=== PATIENT | female | born 1955 | race Caucasian/White ===

== ENCOUNTER 2023-09-06 10:50 | Observation (INO) ==
--- NOTE | 2023-09-06 11:08 | Emergency Department Note ---
Impression & Plan Cellulitis of both lower extremities ED Provider Note NAME: ROB RODRIGUEZ AGE: 68 SEX: F : 1955 ARRIVES VIA: Walk-In INFORMANT: [Patient][, ] ED PROVIDER(S): [Jack Bullock MD] CHIEF COMPLAINT: Leg infection MEDICAL DECISION MAKING: Patient presents due to concern for bilateral leg infection. The patient was noted to have fever. Blood cultures were obtained. IV fluids ordered. Patient did have a wound swab obtained from the left lower extremity open wound The patient's blood work shows a normal white count H&H and platelet count. The patient's kidney function is unremarkable. BUN to creatinine ratio is elevated. The patient did receive IV fluids. Urinalysis without obvious evidence of blood or infection. Pro-Rosalio negative lactate not elevated. Given the patient's fever and associated cellulitic changes do believe the patient would benefit from admission. I did speak the on-call hospitalist MAIRA figueroa and the patient was admitted by Dr. Guzmán. Patient was ordered IV vancomycin. Discussion w/ other healthcare providers: MAIRA Abraham and Dr. Gumzán Prior /Outside records reviewed: [none] Differential diagnosis: Cellulitis, abscess, MRSA infection, DVT, necrotizing fasciitis, dermatitis, drug eruption, allergic reaction, as well as other pathologies were considered. Diagnostics, as interpreted by me: ECG: Sinus with PACs, rate of 65, normal intervals, normal axis. No ST elevations Cardiac monitoring: An order was placed for continuous cardiac monitoring. The monitor shows a rate of 65 with sinus rhythm. [Patient was placed on pulse oximetry] Medical decision rules: [none] Imaging studies: [I informally interpreted the patient's [] with formal report to follow.] [] HPI: Patient presents due to concern for bilateral lower extremity redness and possible infection. The patient states that she initially developed which she describes some bubbling over the skin noted after a cardiac catheterization completed at [facility] in July. The patient subsequently developed some worsening redness just in the last week. The patient has been using a new body wash and does state it is occasionally itchy but primarily complains of it being fiery and warm. Patient denies any chest pains or shortness of breath. The patient states that her cardiac catheterization was "clean." She states that she did not have any dysfunction noted on her echocardiogram. Patient reportedly had some leftover ciprofloxacin which she took throughout the week and spoken to her nephew who is a physician who told her to get it checked out as she was having some open areas that were weeping. The patient did take 1 or 2 doses of amoxicillin just in the last 24 hours. Patient denies any fevers or chills. Patient was noted to be febrile here in the department. Patient denies any recent prolonged car or plane travel no history of DVT or PE. Patient does not take any diuretics and has no history of heart failure PAST MEDICAL HISTORY: [See Below] PAST SURGICAL HISTORY: [See Below] SOCIAL HISTORY: [See Below] HOME MEDICATIONS: [See Below] ALLERGIES: [See Below] VITALS: [See Below] PHYSICAL EXAMINATION: GENERAL: NAD, non-toxic. EYE EXAM: Normal conjunctiva. PERRL, no anisocoria and EOM's grossly intact w/o pain. OROPHARYNX: Moist mucus membranes, grossly normal dentition. NECK: Trachea midline, no stridor. [Supple, no nuchal rigidity, no adenopathy, non-tender. No signs of meningismus. FROM of the neck with good chin to chest and neck extension.] LUNGS: Clear to auscultation. Normal chest wall mechanics. HEART: NSR, no MRG. ABDOMEN: Abdomen soft, non-tender, no masses, no rebound or guarding. BACK: No CVA TTP. SKIN: No rashes and no bruising. UPPER EXTREMITIES: Upper extremities are grossly normal. LOWER EXTREMITIES: Bilateral lower extremity edema with bilateral lower extremity redness and calor, open wounds noted to the left lower extremity, no crepitus. Some clear drainage noted. NEURO EXAM: A&O x3, cranial nerves II-XII grossly intact, normal speech, moves all 4 extremities. Past Med/Surg History Medical History History of endometrial cancer HLD (hyperlipidemia) ROBI on CPAP DM type 2 (diabetes mellitus, type 2) HTN (hypertension) Surgical History History of hernia repair History of hysterectomy Social History Smoking Status: Never smoker Preferred Language: Macanese Feels Safe at Home: Yes Home Meds Home Medications Medication Instructions Recorded Confirmed aspirin 81 mg capsule 81 mg PO DAILY 09/06/23 09/06/23 atorvastatin 40 mg tablet 40 mg PO HS 09/06/23 09/06/23 glipizide 2.5 mg tablet, extended 2.5 mg PO DAILY 09/06/23 09/06/23 release 24 hr valsartan 80 mg tablet 80 mg PO DAILY 09/06/23 09/06/23 Results & Data (ED) Vital Signs Vital Signs - 24 hr 09/06/23 10:59 09/06/23 11:29 09/06/23 13:30 Temperature 38.6 C H Temperature Source Temporal Artery Scan Pulse Rate 76 60 62 Pulse Rate from SpO2 Sensor 60 Pulse Rhythm Regular Respiratory Rate 18 24 Blood Pressure 170/76 H Blood Pressure Mean 107 Pulse Oximetry 98 98 98 Oxygen Delivery Method Room Air Room Air Sepsis Recent Fever Within 48 Hours Yes Sepsis New/Unexplained Change in Mental Status No Sepsis Action Taken by Nursing No Action Required 09/06/23 14:00 09/06/23 14:30 Temperature Temperature Source Pulse Rate 60 57 L Pulse Rate from SpO2 Sensor 67 54 L Pulse Rhythm Respiratory Rate 24 20 Blood Pressure 162/80 H 164/77 H Blood Pressure Mean 107 106 Pulse Oximetry 98 98 Oxygen Delivery Method Sepsis Recent Fever Within 48 Hours Sepsis New/Unexplained Change in Mental Status Sepsis Action Taken by Long-Term Medications Current Medication List: was personally reviewed by me Laboratory Data Attestation: I reviewed the patient's lab results. 09/06/23 11:27 09/06/23 11:27 Lab Results 09/06/23 09/06/23 09/06/23 Range/Units 11:27 12:07 13:40 WBC 7.76 (4.8-10.8) K/ul RBC 4.36 (4.20-5.40) M/uL Hgb 12.9 (12.0-16.0) g/dl Hct 39.3 (37.0-47.0) % MCV 90.1 (80.0-100.0) fL MCH 29.6 (25.0-34.0) pg MCHC 32.8 (32.0-36.0) g/dL RDW Std Deviation 46.7 H (36.4-46.3) fL RDW Coeff of Margaux 14.1 (11.5-14.5) % Plt Count 203 (130-400) K/uL MPV 10.7 (9.4-12.4) fL Immature Gran % (Auto) 0.3 % Neut % (Auto) 68.2 % Lymph % (Auto) 22.4 % Clay % (Auto) 7.3 % Eos % (Auto) 1.3 % Baso % (Auto) 0.5 % Neut # (Auto) 5.29 (1.40-6.50) K/uL Lymph # (Auto) 1.74 (1.20-3.40) K/uL Clay # (Auto) 0.57 (0.11-0.59) K/uL Eos # (Auto) 0.10 (0.00-0.50) K/uL Baso # (Auto) 0.04 (0.00-0.20) K/uL Immature Gran # (Auto) 0.02 (0.01-0.20) K/uL PT 10.7 (9.0-12.0) Seconds INR 1.0 (0.9-1.1) APTT 29 (21-31) Seconds PTT Ratio 1.0 Sodium 139 (136-145) mmol/L Potassium 4.1 (3.5-5.1) mmol/L Chloride 107 (98-107) mmol/L Carbon Dioxide 27 (21-32) mmol/L Anion Gap 5 (3-11) BUN 19 (6-23) mg/dl Creatinine 0.70 (0.6-1.2) mg/dl Est Cr Clr Drug Dosing Not Reportable Est GFR ( Amer) 101.7 ml/min Est GFR (Non-Af Amer) 87.8 ml/min BUN/Creatinine Ratio 27.1 H (10-20) Glucose 127 H (70-99(Fasting)) mg/dl Lactate 1.0 (0.4-2.0) mmol/L Calcium 9.4 (8.6-10.3) mg/dl Magnesium 2.0 (1.7-2.4) mg/dl Total Bilirubin 0.8 (0.2-1.0) mg/dl Direct Bilirubin TNP AST 24 (13-39) U/L ALT 19 (7-52) U/L Alkaline Phosphatase 105 H (34-104) U/L Troponin I High Sens 4.6 (0-14) pg/ml Total Protein 7.5 (6.0-8.3) gm/dl Albumin 4.6 (3.4-5.0) gm/dl Procalcitonin 0.02 (0-0.5) ng/ml Urine Color Yellow Urine Appearance Clear (Clear) Urine pH 5.5 (4.5-7.5) Ur Specific [place] 1.009 (1.000-1.030) Urine Protein Negative (Negative) Urine Glucose (UA) Negative (Negative) Urine Ketones Negative (Negative) Urine Blood Negative (Negative) Urine Nitrite Negative (Negative) Urine Bilirubin Negative (Negative) Urine Urobilinogen Negative (Negative) Ur Leukocyte Esterase Negative (Negative) Administered Medications Discontinued Medications Acetaminophen (Ofirmev) 1,000 mg in 100 mls @ 400 mls/hr IV NOW STA Stop: 09/06/23 11:43 Last Infusion: 09/06/23 11:54 Dose: Infused Documented By: Admin: 09/06/23 11:39 Dose: 400 mls/hr Documented By: KEVAN Sodium Chloride (Nss) 500 mls @ 999 mls/hr IV .Q31M ONE Stop: 09/06/23 12:50 Last Infusion: 09/06/23 13:38 Dose: Infused Documented By: Admin: 09/06/23 13:07 Dose: 999 mls/hr Documented By: LYUBOV Piperacillin Sod/Tazobactam (Sod 4.5 gm/ Dextrose) 100 mls @ 25 mls/hr IV Q8H [facility]; Protocol Stop: 09/13/23 14:14 Last Admin: 09/06/23 14:27 Dose: Not Given Documented By: RADHA Imaging Data Radiologist's Impression: Chest X-Ray 09/06/23 11:29 XR chest 1V portable CLINICAL HISTORY: Sepsis TECHNIQUE: Single frontal radiograph of the chest was obtained. Comparison: None available at the time of this dictation. FINDINGS: No lines and tubes are seen. The cardiomediastinal silhouette is normal. The lungs are clear. No evidence of pleural effusion or pneumothorax. IMPRESSION: No acute abnormalities and in particular no radiographic evidence of pneumonia. ACT 112: Negative or not required by law. Electronically signed by: Ceasar Nair M.D. 09/06/2023 11:48 AM Discharge Plan Visit Data Chief Complaint: Infection, Wound Stated Complaint: INFECTION IN LEFT LEG ED Provider: Jakc Bullock Discharge Problem: Cellulitis of both lower extremities Forms Stand Alone Forms: My [facility] Prescriptions Prescriptions: No Action atorvastatin 40 mg tablet 40 mg PO HS valsartan 80 mg tablet 80 mg PO DAILY glipizide 2.5 mg tablet extended release 24hr 2.5 mg PO DAILY aspirin 81 mg Capsule 81 mg PO DAILY Referrals Referrals: PCP,NO [Physician] -
[2023-09-06] MEDS: ACETAMINOPHEN 1,000 MG/100 ML VIAL IV STA (11:39)
[2023-09-06 11:47] LABS: Basophils # (auto) 0.04 K/uL (0.00-0.20); Basophils % (auto) 0.5 %; Eosinophils % (auto) 1.3 %; Hematocrit (blood only) 39.3 % (37.0-47.0); Hemoglobin 12.9 g/dl (12.0-16.0); Immature Granulocytes # (auto) 0.02 K/uL (0.01-0.20); Immature Granulocytes % (auto) 0.3 %; Lymphocytes # (auto) 1.74 K/uL (1.20-3.40); Lymphocytes % (auto) 22.4 %; Mean Corpuscular Hemoglobin 29.6 pg (25.0-34.0); Mean Corpuscular Hgb Conc 32.8 g/dL (32.0-36.0); Mean Corpuscular Volume 90.1 fL (80.0-100.0); Mean Platelet Volume 10.7 fL (9.4-12.4); Monocytes # (auto) 0.57 K/uL (0.11-0.59); Monocytes % (auto) 7.3 %; Neutrophils # (auto) 5.29 K/uL (1.40-6.50); Neutrophils % (auto) 68.2 %; Platelet Count 203 K/uL (130-400); RDW Coefficient of Variation 14.1 % (11.5-14.5); RDW Standard Deviation 46.7 fL (36.4-46.3); Red Blood Count 4.36 M/uL (4.20-5.40); White Blood Count 7.76 K/ul (4.8-10.8)
--- NOTE | 2023-09-06 11:50 | XRay Report ---
XR chest 1V portable CLINICAL HISTORY: Sepsis TECHNIQUE: Single frontal radiograph of the chest was obtained. Comparison: None available at the time of this dictation. FINDINGS: No lines and tubes are seen. The cardiomediastinal silhouette is normal. The lungs are clear. No evid ence of pleural effusion or pneumothorax. IMPRESSION: No acute abnormalities and in particular no radiographic evidence of pneumonia. ACT 112: Negative or not required by law. Electronically signed by: Ceasar Nair M.D. 09/06/2023 11:48 AM
[2023-09-06 12:09] LABS: Alanine Aminotransferase 19 U/L (7-52); Albumin Level 4.6 gm/dl (3.4-5.0); Alkaline Phosphatase 105 U/L (34-104); Anion Gap 5 (3-11); Aspartate Aminotransferase 24 U/L (13-39); BUN Creatinine Ratio 27.1 (10-20); Bilirubin,Total 0.8 mg/dl (0.2-1.0); Blood Urea Nitrogen 19 mg/dl (6-23); Calcium 9.4 mg/dl (8.6-10.3); Carbon Dioxide 27 mmol/L (21-32); Chloride 107 mmol/L (98-107); Est GFR (African American) 101.7 ml/min; Est GFR (Non-African American) 87.8 ml/min; Glucose 127 mg/dl (70-99(Fasting)); Potassium 4.1 mmol/L (3.5-5.1); Sodium 139 mmol/L (136-145); Total Protein 7.5 gm/dl (6.0-8.3)
[2023-09-06 12:17] LABS: Troponin I High Sensitivity 4.6 pg/ml (0-14)
[2023-09-06 12:18] LABS: Partial Thromboplastin Time 29 Seconds (21-31); Prothrombin Time 10.7 Seconds (9.0-12.0)
[2023-09-06] MEDS: SODIUM CHLORIDE 0.9% 500 ML IV ONE (13:07)
[2023-09-06] MEDS ORDERED: VANCOMYCIN CONSULT ACTIVE PRN ×2 (14:14→14:19)
[2023-09-06 14:16] LABS: Appearance Urine Clear (Clear); Bilirubin Urine Negative (Negative); Blood Urine Negative (Negative); Color Urine Yellow; Glucose Urine UA Negative (Negative); Ketones Urine Negative (Negative); Leukocyte Esterase Urine Negative (Negative); Nitrite Urine Negative (Negative); Protein Urine Negative (Negative); Specific Gravity Urine 1.009 (1.000-1.030); Urobilinogen Urine Negative (Negative); pH Urine 5.5 (4.5-7.5)
[2023-09-06] MEDS: PIPERACILLIN/TAZOBACTAM 4.5 GM in DEXTROSE 5% MINI-B 100 ML IV SCH (14:27)
[2023-09-06] MEDS ORDERED: Patient's ALLERGY Info needs ENTERED SCH (15:00)
[2023-09-06] MEDS: VANCOMYCIN HCL 2,750 MG in SODIUM CHLORIDE 0.9% 500 ML IV ONE (15:26)
--- NOTE | 2023-09-06 16:17 | Pharmacy Report ---
Pharmacy PK ABX Note - Date of Service September 06, 2023 - Assessment and Plan Assessment 68 year old F receiving vancomycin for bilateral lower extremity cellulitis. Hx of recent cardiac catheterization in July and some "bubbling" over the skin noted after procedure. Worsening redness just in the last week, but also with some weeping so came to ER. Per notes, patient took 1-2 doses of amoxicillin in last 24 hours and a couple doses of ciprofloxacin. Plan Vancomycin * Loading dose: 2750 mg iv x 1 (ED ~22 mg/kg/dose) * Maintenance dose: 1250 mg IV every 12 hours * Regimen is predicted to achieve target AUC/MAYUR of 400-600 mg/L.hr * Plan to order level if plan is to continue >48 hours Pharmacy will continue to follow and will adjust dose/frequency as necessary. Thank you. Pharmacy has transitioned to AUC monitoring for vancomycin. AUC/MAYUR is the preferred PK/PD target and is associated with decreased risk of nephrotoxicity compared to traditional trough targets.
[2023-09-06] MEDS ORDERED: GLUCAGON FOR INJ 1 MG VIAL SQ PRN (16:48)
[2023-09-06] MEDS ORDERED: ACETAMINOPHEN 325 MG TAB PO PRN (16:48)
[2023-09-06] MEDS ORDERED: GLUCOSE 40% GEL 15 GM TUBE PO PRN (16:48)
[2023-09-06] MEDS ORDERED: CARBOHYDRATES FOR HYPOGLYCEMIA PO PRN (16:48)
[2023-09-06] MEDS ORDERED: GLUCOSE 10 TAB/TUBE PO PRN (16:48)
[2023-09-06] MEDS ORDERED: DEXTROSE 50% 50 ML SYRINGE IV PRN (16:48)
--- NOTE | 2023-09-06 16:53 | History & Physical Report ---
Date of Service September 06, 2023 Assessment & Plan (1) Cellulitis of both lower extremities: Plan: Admit to [facility] Patient presenting from home with reports of worsening bilateral lower extremity redness and blistering. Was taking Cipro and amoxicillin at home self-directed without improvement. In the ED, patient is febrile 38.6, otherwise is stable and does not appear septic. WBC 7.7 Started on vancomycin, Gram stain shows many gram-positive cocci, will continue with vancomycin only for now BLLE dopplers pending Follow blood and wound cultures (2) HTN (hypertension): Plan: Chronic, stable Continue valsartan (3) DM type 2 (diabetes mellitus, type 2): Plan: Unknown Hgb A1c, will check with a.m. labs Hold glipizide and utilize NovoLog per protocol while hospitalized (4) ROBI on CPAP: Plan: CPAP as per home settings (5) HLD (hyperlipidemia): Plan: Chronic, stable Continue statin DVT PROPHYLAXIS SQ Lovenox Patient seen in collaboration with Dr. Guzmán. I spent a total of 75 minutes coordinating, documenting, and providing care for this patient excluding time spent in the performance of separately billed services. This included personally reviewing all current laboratories and imaging studies, medication reconciliation, outpatient chart review, and discussion with specialists. History of Present Illness Chief Complaint: Leg infection Primary Care Provider: RINA BUSTAMANTE 68-year-old female with PMH HTN, DM type II, ROBI on CPAP, HLD, history of endometrial cancer s/p hysterectomy, and other problems listed below who presents to the ED for evaluation of bilateral lower extremity redness. History is obtained from the patient. No prior records available for review. Patient reports she noted worsening redness of her lower extremities about 10 days ago. 1 week ago, she reports she started taking leftover ciprofloxacin. Legs have been weeping and developing blisters. She developed a larger blister on her left anaya that subsequently opened. It has been draining purulent drainage. Yesterday, she started taking amoxicillin that she had at home as well. Patient was seen at an outpatient [facility] and was referred to the ED for further evaluation. Patient denies any injury to her legs. She reports that she does not have pets in the home. Denies fevers and chills. No chest pain or shortness of breath. Denies lightheadedness, dizziness, diaphoresis, syncopal events. No abdominal pain, nausea, vomiting, diarrhea. Denies urinary symptoms. In the ED, patient was febrile at 38.6. Labs are unremarkable. Patient received Tylenol and IVF. Allergies Allergy/AdvReac Type Severity Reaction Status Date / Time hydrochlorothiazide Allergy Weakness Verified 09/06/23 15:26 Home Medications Medication Instructions Recorded Confirmed Type aspirin 81 mg capsule 81 mg PO DAILY 09/06/23 09/06/23 History atorvastatin 40 mg tablet 40 mg PO HS 09/06/23 09/06/23 History glipizide 2.5 mg tablet, extended 2.5 mg PO DAILY 09/06/23 09/06/23 History release 24 hr valsartan 80 mg tablet 80 mg PO DAILY 09/06/23 09/06/23 History Past Med/Surg History Medical History History of endometrial cancer HLD (hyperlipidemia) ROBI on CPAP DM type 2 (diabetes mellitus, type 2) HTN (hypertension) Surgical History History of hernia repair History of hysterectomy Social History Smoking Status: Never smoker Second Hand Exposure: No; Do You Dip or Chew Tobacco: No; Tobacco Cessation Education Requested by Patient: No Hx Alcohol Use: No Hx Substance Use: No Preferred Language: Frisian Communication Ability: Effective Nail Tech Required: No Beliefs That Will Affect Care: None Current Living Situation: Spouse Feels Safe at Home: Yes Assistive Devices: Glasses Physical Exam Constitutional: WD/WN, vitals as above + obese; no acute distress Eyes: PERRL, conjunctivae normal, anicteric sclerae ENMT: external ear and nose normal, oropharynx normal Respiratory: normal respiratory effort, lungs clear to auscultation Cardiovascular: Rate/Rhythm: regular rate and regular rhythm Vessels: n ormal peripheral pulses Extremities: + edema (+2 edema BLE) Gastrointestinal (Abdomen): normal bowel sounds, soft, nontender, no hepatosplenomegaly Musculoskeletal: no cyanosis or clubbing, extremities motor strength 5/5 Skin: BLLE erythematous with scattered blisters, open blister noted to left anaya with dried purulent drainage Neurologic: PERRL, EOMI, accommodation nl, no face palsy, no dysarthria Psychiatric: A+Ox3, euthymic affect Results & Data Results & Data Vital Signs (Past 12 Hours) Vital Signs Temp Pulse Pulse Resp BP BP Pulse Ox 09/06/23 15:29 37.0 C 56 L 20 144/70 H 98 09/06/23 14:30 57 L 20 164/77 H 98 09/06/23 14:00 60 24 162/80 H 98 09/06/23 13:30 62 24 98 09/06/23 11:29 60 98 09/06/23 10:59 38.6 C H 76 18 170/76 H 98 O2 Del Method 09/06/23 15:29 09/06/23 14:30 09/06/23 14:00 09/06/23 13:30 09/06/23 11:29 Room Air 09/06/23 10:59 Room Air Laboratory Results Short CBC 09/06/23 Range/Units 11:27 WBC 7.76 (4.8-10.8) K/ul Hgb 12.9 (12.0-16.0) g/dl Hct 39.3 (37.0-47.0) % Plt Count 203 (130-400) K/uL BMP 09/06/23 11:27 Sodium 139 Potassium 4.1 Chloride 107 Carbon Dioxide 27 BUN 19 Creatinine 0.70 Glucose 127 H Calcium 9.4 Liver Function 09/06/23 Range/Units 11:27 Total Bilirubin 0.8 (0.2-1.0) mg/dl Direct Bilirubin TNP AST 24 (13-39) U/L ALT 19 (7-52) U/L Alkaline Phosphatase 105 H (34-104) U/L Albumin 4.6 (3.4-5.0) gm/dl Urine 09/06/23 Range/Units 13:40 Urine Color Yellow Urine Appearance Clear (Clear) Urine pH 5.5 (4.5-7.5) Ur Specific [place] 1.009 (1.000-1.030) Urine Protein Negative (Negative) Urine Glucose (UA) Negative (Negative) Diagnostic Findings Chest X-Ray 09/06/23 11:29 XR chest 1V portable CLINICAL HISTORY: Sepsis TECHNIQUE: Single frontal radiograph of the chest was obtained. Comparison: None available at the time of this dictation. FINDINGS: No lines and tubes are seen. The cardiomediastinal silhouette is normal. The lungs are clear. No evidence of pleural effusion or pneumothorax. IMPRESSION: No acute abnormalities and in particular no radiographic evidence of pneumonia. ACT 112: Negative or not required by law. Electronically signed by: Ceasar Nair M.D. 09/06/2023 11:48 AM Supervising Physician Co-Signing Physician Notes I have seen and examined the patient and have discussed the case with the provider above. I have reviewed the advanced practitioner's documentation, and I agree with, and take responsibility for that plan of care. 68-year-old female who receives care out of network presented with concerns of bilateral leg infection. She reported having a fever and states that her legs became red and concerning approximately 1 week ago. At that time she started ciprofloxacin 500 mg twice daily for 7 days but with no improvement. She does have a open wound on the lower left leg with yellow dried drainage and reports of purulent drainage in the past week. 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 She does not appear to be septic today. On exam vitals are stable including a blood pressure 144/70 pulse 56. She has normal respirations and initial temp of 38.6 improved to 37.0. She is oxygenating well on room air. She is generally obese. She has a normal heart and lung exam. Abdomen soft nontender nondistended. Lower extremities are affected with erythema bilaterally and open wound as described above on the left lower leg. Feet are noninvolved bilaterally. There is a slight swelling with no pitting edema present there is a vesicular appearing irritation and warmth to the skin but no elham blistering. Patient states that her left lower extremity wound was initially a blister that broke open. No wounds on feet. Workup as noted above including no evidence of leukocytosis chemistry panel within normal limit. Venous Doppler study is negative for DVT. Blood cultures are pending. A wound culture initial Gram stain did reveal many gram-positive cocci. Agree with plan for empiric vancomycin monotherapy for bilateral lower extremity cellulitis pending culture and results and clinical improvement. DO Ramirez
[2023-09-06] MEDS: INSULIN ASPART PER UNIT CHARGE SC SCH (17:46)
[2023-09-06] MEDS: ENOXAPARIN INJ 40 MG/0.4 ML SYR SQ SCH (18:09)
--- NOTE | 2023-09-06 19:26 | Ultrasound Report ---
US venous doppler LE BI CLINICAL HISTORY: edema TECHNIQUE: Bilateral lower extremity real-time compression venous ultrasound with Color Doppler imagi ng. Utilizing real-time ultrasonic imaging multiple real time high-resolution ultrasonic images with compression and noncompression maneuvers of the deep venous system in addition to color doppler imagi ng were performed from the common femoral vein through the proximal calf veins. COMPARISON: None available at the time of this dictation. FINDINGS/IMPRESSION: Currently there is normal compressibility of the deep venous system from the common femoral vein thro ugh the proximal calf veins. No superficial venous thrombosis is identified. ACT 112: Negative or not required by law. Electronically signed by: Ceasar Nair M.D. 09/06/2023 7:25 PM
[2023-09-06] MEDS: DOCUSATE SODIUM 100 MG CAP PO SCH (21:15)
[2023-09-06] MEDS: ATORVASTATIN 40 MG TAB PO SCH (21:15)
[2023-09-07] MEDS: VANCOMYCIN HCL 1,250 MG in SODIUM CHLORIDE 0.9% 250 ML IV SCH (04:02)
[2023-09-07 06:34] LABS: Hematocrit (blood only) 36.2 % (37.0-47.0); Hemoglobin 11.4 g/dl (12.0-16.0); Mean Corpuscular Hemoglobin 28.7 pg (25.0-34.0); Mean Corpuscular Hgb Conc 31.5 g/dL (32.0-36.0); Mean Corpuscular Volume 91.2 fL (80.0-100.0); Mean Platelet Volume 10.7 fL (9.4-12.4); Platelet Count 176 K/uL (130-400); RDW Coefficient of Variation 14.4 % (11.5-14.5); RDW Standard Deviation 48.2 fL (36.4-46.3); Red Blood Count 3.97 M/uL (4.20-5.40); White Blood Count 6.19 K/ul (4.8-10.8)
[2023-09-07 07:02] LABS: BUN Creatinine Ratio 22.1 (10-20); Calcium 8.8 mg/dl (8.6-10.3); Creatinine Clr Calc Pharmacy 107.2 ml/min; Est GFR (African American) 102.7 ml/min; Est GFR (Non-African American) 88.6 ml/min; Potassium 4.1 mmol/L (3.5-5.1)
[2023-09-07 07:04] LABS: Estimated Average Glucose 143 mg/dl; Hemoglobin A1C 6.6 % (4.5-5.6)
--- NOTE | 2023-09-07 07:57 | Electrocardiogram Report ---
Test Reason : Blood Pressure : / mmHG Vent. Rate : 065 BPM Atrial Rate : 065 BPM P-R Int : 132 ms QRS Dur : 092 ms QT Int : 418 ms P-R-T Axes : 043 -23 049 degrees QTc Int : 434 ms Sinus rhythm with Premature atrial complexes Incomplete right bundle branch block Left ventricular hypertrophy with repolarization abnormality Abnormal ECG No previous ECGs available Confirmed by Jose Guzman ([id number]) on 09/07/2023 7:57:23 AM Referred By: REFERRED SELF Confirmed By:Jose Guzman
[2023-09-07] MEDS: VALSARTAN 80 MG TAB PO SCH (08:33)
[2023-09-07] MEDS: ASPIRIN 81 MG ECTAB PO SCH (08:33)
[2023-09-07] MEDS: FUROSEMIDE 40 MG/4 ML VIAL IV ONE (12:07)
--- NOTE | 2023-09-07 14:30 | Hospitalist Progress Note ---
Date of Service September 07, 2023 Assessment & Plan (1) Cellulitis of both lower extremities: Plan: Admit to [facility] Patient presenting from home with reports of worsening bilateral lower extremity redness and blistering. Was taking Cipro and amoxicillin at home self-directed without improvement. In the ED, patient is febrile 38.6, otherwise is stable and does not appear septic. WBC 7.7 Started on vancomycin, Gram stain shows many gram-positive cocci, will continue with vancomycin only for now BLLE dopplers pending Follow blood and wound cultures 09/06 echo: grade 1 diastolic dysfunction Lasix 40mg IV given change Vanco to Dapto IV to prevent SMITA (2) HTN (hypertension): Plan: Chronic, stable Continue valsartan (3) DM type 2 (diabetes mellitus, type 2): Plan: Unknown Hgb A1c, will check with a.m. labs Hold glipizide and utilize NovoLog per protocol while hospitalized (4) ROBI on CPAP: Plan: CPAP as per home settings (5) HLD (hyperlipidemia): Plan: Chronic, stable Continue statin DVT PROPHYLAXIS SQ Lovenox Disposition anticipate return to home tomorrow with oral abx and lasix Admission and Anticipated Discharge Date Admission Date: September 06, 2023 Subjective ff up for LE cellulitis, etc seen resting in bed, comfortable LE pain improving reports improvement of erythema also no chest pain, dyspnea, palpitations, dizziness no fever/chills no other symptoms Review of Systems Review of Systems: all noted and negative except for above Physical Exam Physical Exam: General- oriented x 3, not in distress, speaks in sentences with no effort or accessory muscle use Eyes- anicteric Neck- no JVD Lungs- clear breath sounds bilaterally, no rales/wheezes Heart- normal rate, regular rhythm; no murmurs Abdomen- normal bowel sounds, nondistended, soft, nontender Extremities-bilateral lower ext: moderate erythema lower half of lower ext with mild warmth, no tenderness healing wound L lower ext Neuro- alert, oriented x 3; no gross focal neurologic deficits Skin- warm & dry Results & Data Results & Data Vital Signs (Past 12 Hours) Vital Signs Temp Pulse Pulse Resp BP Pulse Ox O2 Del Method 09/07/23 07:27 36.6 C 58 L 16 128/75 97 Room Air, CPAP 09/07/23 04:45 65 19 95 all noted and reviewed including below
[2023-09-07] MEDS: DAPTOmycin 350 MG in SYRINGE 0 ML IV SCH (16:06)
[2023-09-08] MEDS ORDERED: Nursing to Pharmacy Communication SCH (08:00)
[2023-09-08 08:27] LABS: BUN Creatinine Ratio 28.2 (10-20); Calcium 9.5 mg/dl (8.6-10.3); Creatinine Clr Calc Pharmacy 93.5 ml/min; Est GFR (African American) 89.3 ml/min
--- NOTE | 2023-09-08 19:59 | Discharge Summary ---
Discharge Summary Date of Service September 08, 2023 Notes For Next Care Provider Medication Changes From Visit Augmentin 8 7 5 mg twice daily x 1 week Doxycycline 100 mg twice daily x 1 week Probiotics daily Lasix 20 mg p.o. daily Potassium 10 mg p.o. daily Admission HPI Per Admitting Provider 68-year-old female with PMH HTN, DM type II, ROBI on CPAP, HLD, history of endometrial cancer s/p hysterectomy, and other problems listed below who presents to the ED for evaluation of bilateral lower extremity redness. History is obtained from the patient. No prior records available for review. Patient reports she noted worsening redness of her lower extremities about 10 days ago. 1 week ago, she reports she started taking leftover ciprofloxacin. Legs have been weeping and developing blisters. She developed a larger blister on her left anaya that subsequently opened. It has been draining purulent drainage. Yesterday, she started taking amoxicillin that she had at home as well. Patient was seen at an outpatient [facility] and was referred to the ED for further evaluation. Patient denies any injury to her legs. She reports that she does not have pets in the home. Denies fevers and chills. No chest pain or shortness of breath. Denies lightheadedness, dizziness, diaphoresis, syncopal events. No abdominal pain, nausea, vomiting, diarrhea. Denies urinary symptoms. In the ED, patient was febrile at 38.6. Labs are unremarkable. Patient received Tylenol and IVF. Admission Exam Per Admitting Provider Constitutional: WD/WN, vitals as above + obese; no acute distress Eyes: PERRL, conjunctivae normal, anicteric sclerae ENMT: external ear and nose normal, oropharynx normal Respiratory: normal respiratory effort, lungs clear to auscultation Cardiovascular: Rate/Rhythm: regular rate and regular rhythm Vessels: normal peripheral pulses Extremities: + edema (+2 edema BLE) Gastrointestinal (Abdomen): normal bowel sounds, soft, nontender, no hepatosplenomegaly Musculoskeletal: no cyanosis or clubbing, extremities motor strength 5/5 Skin: BLLE erythematous with scattered blisters, open blister noted to left anaya with dried purulent drainage Neurologic: PERRL, EOMI, accommodation nl, no face palsy, no dysarthria Psychiatric: A+Ox3, euthymic affect Principal Dx & Hospital Course #1 = Principal Diagnosis (1) Cellulitis of both lower extremities: BILATERAL LOWER EXTREMITY EDEMA, CELLULITIS IN THE SETTING OF GRADE 1 DIASTOLIC DYSFUNCTION [facility] Patient presenting from home with reports of worsening bilateral lower extremity redness and blistering. Was taking Cipro and amoxicillin at home self-directed without improvement. In the ED, patient is febrile 38.6, otherwise is stable and does not appear septic. WBC 7.7 Started on vancomycin, Gram stain shows many gram-positive cocci, will continue with vancomycin only for now BLLE dopplers Currently there is normal compressibility of the deep venous system from the common femoral vein through the proximal calf veins. No superficial venous thrombosis is identified. 09/06 echo: grade 1 diastolic dysfunction Lasix 40mg IV given change Vanco to Dapto IV to prevent SMITA 09/07 Patient seen sitting up in bed, comfortable, not in distress States she feels much better overall Denies any leg pain, able to ambulate properly Leg edema significantly improved Erythema also significantly improved Blood cultures: Negative so far Wound culture: MRSA Discharge plan: Augmentin 875 mg p.o. twice daily x 1 week Doxycycline 100 mg p.o. twice daily x 1 week Probiotics daily x 1 month Lasix 20 mg p.o. daily Potassium 10 mill equivalent p.o. daily -May need to titrate Lasix based on response Follow-up with PCP in 1 week (2) HTN (hypertension): Chronic, stable Continue valsartan (3) DM type 2 (diabetes mellitus, type 2): A1c 6.6 Follow-up with PCP (4) ROBI on CPAP: CPAP as per home settings (5) HLD (hyperlipidemia): Chronic, stable Continue statin DVT PROPHYLAXIS SQ Lovenox Disposition Discharge to home PCP follow-up in 1 week plan of care discussed with patient in detail and at length all questions answered she is understanding, agreeable, comfortable with the plan of care Discharge Exam General- oriented x 3, not in distress, speaks in sentences with no effort or accessory muscle use Eyes- anicteric Neck- no JVD Lungs- clear breath sounds bilaterally, no rales/wheezes Heart- normal rate, regular rhythm; no murmurs Abdomen- normal bowel sounds, nondistended, soft, nontender Extremities-mild lower extremity edema Mild erythema mostly on the distal aspect of the lower extremity No warmth, no tenderness Healing wounds on the distal aspect of the left lower extremity Neuro- alert, oriented x 3; no gross focal neurologic deficits Skin- warm & dry Updated Medication List Medication Instructions Recorded Confirmed Type aspirin 81 mg capsule 81 mg PO DAILY 09/06/23 09/06/23 History atorvastatin 40 mg tablet 40 mg PO HS 09/06/23 09/06/23 History glipizide 2.5 mg tablet, extended 2.5 mg PO DAILY 09/06/23 09/06/23 History release 24 hr valsartan 80 mg tablet 80 mg PO DAILY 09/06/23 09/06/23 History amoxicillin 875 mg-potassium 1 tab PO BID 7 days #14 tabs 09/08/23 Rx clavulanate 125 mg tablet doxycycline hyclate 100 mg capsule 100 mg PO BID 7 days #14 caps 09/08/23 Rx furosemide 20 mg tablet (Lasix) 20 mg PO DAILY #30 tabs 09/08/23 Rx potassium chloride 10 mEq 10 meq PO DAILY 30 days #30 tabs 09/08/23 Rx tablet,extended release Hospital Stay Data Consultations 09/06/23 13:06 Consult Hospitalist Stat 09/06/23 14:01 ED Decision to Admit Stat Diagnostic Imagining Performed Laboratory Results WBC 6.19 K/ul (4.8-10.8) 09/07/23 06:09 RBC 3.97 M/uL (4.20-5.40) L 09/07/23 06:09 Hgb 11.4 g/dl (12.0-16.0) L 09/07/23 06:09 Hct 36.2 % (37.0-47.0) L 09/07/23 06:09 MCV 91.2 fL (80.0-100.0) 09/07/23 06:09 MCH 28.7 pg (25.0-34.0) 09/07/23 06:09 MCHC 31.5 g/dL (32.0-36.0) L 09/07/23 06:09 RDW Std Deviation 48.2 fL (36.4-46.3) H 09/07/23 06:09 RDW Coeff of Margaux 14.4 % (11.5-14.5) 09/07/23 06:09 Plt Count 176 K/uL (130-400) 09/07/23 06:09 MPV 10.7 fL (9.4-12.4) 09/07/23 06:09 Immature Gran % (Auto) 0.3 % 09/06/23 11: Neut % (Auto) 68.2 % 09/06/23 11: Lymph % (Auto) 22.4 % 09/06/23 11: [place] % (Auto) 7.3 % 09/06/23 11:27 Eos % (Auto) 1.3 % 09/06/23 11: Baso % (Auto) 0.5 % 09/06/23 11: Neut # (Auto) 5.29 K/uL (1.40-6.50) 09/06/23 11: Lymph # (Auto) 1.74 K/uL (1.20-3.40) 09/06/23 11: [place] # (Auto) 0.57 K/uL (0.11-0.59) 09/06/23 11: Eos # (Auto) 0.10 K/uL (0.00-0.50) 09/06/23 11: Baso # (Auto) 0.04 K/uL (0.00-0.20) 09/06/23 11: Immature Gran # (Auto) 0.02 K/uL (0.01-0.20) 09/06/23 11: PT 10.7 Seconds (9.0-12.0) 09/06/23 11: INR 1.0 (0.9-1.1) 09/06/23 11: APTT 29 Seconds (21-31) 09/06/23 11: PTT Ratio 1.0 09/06/23 11: Sodium 139 mmol/L (136-145) 09/08/23 07:43 Potassium 4.0 mmol/L (3.5-5.1) 09/08/23 07:43 Chloride 105 mmol/L (98-107) 09/08/23 07:43 Carbon Dioxide 28 mmol/L (21-32) 09/08/23 07:43 Anion Gap 6 (3-11) 09/08/23 07:43 BUN 22 mg/dl (6-23) 09/08/23 07:43 Creatinine 0.78 mg/dl (0.6-1.2) 09/08/23 07:43 Est Cr Clr Drug Dosing 93.5 ml/min 09/08/23 07:43 Est GFR ( Amer) 89.3 ml/min 09/08/23 07:43 Est GFR (Non-Af Amer) 77.0 ml/min 09/08/23 07:43 BUN/Creatinine Ratio 28.2 (10-20) H 09/08/23 07:43 Glucose 117 mg/dl (70-99(Fasting)) H 09/08/23 07:43 POC Glucose 124 mg/dl (70-99) H 09/08/23 07:40 Estimat Average Glucose 143 mg/dl 09/07/23 06:09 Hemoglobin A1c 6.6 % (4.5-5.6) H 09/07/23 06:09 Lactate 1.0 mmol/L (0.4-2.0) 09/06/23 12:07 Calcium 9.5 mg/dl (8.6-10.3) 09/08/23 07:43 Magnesium 2.0 mg/dl (1.7-2.4) 09/06/23 11:27 Total Bilirubin 0.8 mg/dl (0.2-1.0) 09/06/23 11:27 Direct Bilirubin TNP 09/06/23 11:27 AST 24 U/L (13-39) 09/06/23 11:27 ALT 19 U/L (7-52) 09/06/23 11:27 Alkaline Phosphatase 105 U/L (34-104) H 09/06/23 11:27 Troponin I High Sens 4.6 pg/ml (0-14) 09/06/23 11:27 Total Protein 7.5 gm/dl (6.0-8.3) 09/06/23 11:27 Albumin 4.6 gm/dl (3.4-5.0) 09/06/23 11:27 Procalcitonin 0.02 ng/ml (0-0.5) 09/06/23 11:27 Urine Color Yellow 09/06/23 13:40 Urine Appearance Clear (Clear) 09/06/23 13:40 Urine pH 5.5 (4.5-7.5) 09/06/23 13:40 Ur Specific [place] 1.009 (1.000-1.030) 09/06/23 13:40 Urine Protein Negative (Negative) 09/06/23 13:40 Urine Glucose (UA) Negative (Negative) 09/06/23 13:40 Urine Ketones Negative (Negative) 09/06/23 13:40 Urine Blood Negative (Negative) 09/06/23 13:40 Urine Nitrite Negative (Negative) 09/06/23 13:40 Urine Bilirubin Negative (Negative) 09/06/23 13:40 Urine Urobilinogen Negative (Negative) 09/06/23 13:40 Ur Leukocyte Esterase Negative (Negative) 09/06/23 13:40 Impressions Chest X-Ray 09/06/23 11:29 XR chest 1V portable CLINICAL HISTORY: Sepsis TECHNIQUE: Single frontal radiograph of the chest was obtained. Comparison: None available at the time of this dictation. FINDINGS: No lines and tubes are seen. The cardiomediastinal silhouette is normal. The lungs are clear. No evidence of pleural effusion or pneumothorax. IMPRESSION: No acute abnormalities and in particular no radiographic evidence of pneumonia. ACT 112: Negative or not required by law. Electronically signed by: Ceasar Nair M.D. 09/06/2023 11:48 AM Venous Doppler Study 09/06/23 14:19 US venous doppler LE BI CLINICAL HISTORY: edema TECHNIQUE: Bilateral lower extremity real-time compression venous ultrasound with Color Doppler imaging. Utilizing real-time ultrasonic imaging multiple real time high-resolution ultrasonic images with compression and noncompression maneuvers of the deep venous system in addition to color doppler imaging were performed from the common femoral vein through the proximal calf veins. COMPARISON: None available at the time of this dictation. FINDINGS/IMPRESSION: Currently there is normal compressibility of the deep venous system from the common femoral vein through the proximal calf veins. No superficial venous thrombosis is identified. ACT 112: Negative or not required by law. Electronically signed by: Ceasar Nair M.D. 09/06/2023 7:25 PM Pending Results Patient Have Any Pending Studies at Discharge: Yes Discharge Instructions Given to Patient (Per Discharging Provider) PLEASE REFER TO YOUR NEW MEDICATION LIST AND FOLLOW INSTRUCTIONS CAREFULLY. YOUR NEW MEDICATIONS INCLUDE: Doxycycline-antibiotic for leg infection Augmentin-antibiotic for leg infection Lasix- diuretic for leg swelling Potassium supplement- while taking Lasix Take a probiotic ([employer]albook[employer] Brand recommended) and eat yogurt daily for at least 1 month. PLEASE CALL YOUR PRIMARY CARE PHYSICIAN OR RETURN TO THE ER IF WITH WORSENING OF SYMPTOMS, INCLUDING Fevers or chills, weakness, nausea vomiting, Worsening leg redness, tenderness, pain, swelling, Diarrhea, Shortness of breath, chest pain, palpitations, dizziness, etc. FOLLOW UP WITH PRIMARY CARE PHYSICIAN DR. RICHTER THIS COMING FRIDAY AT 145PM. Total Time Total Time Spent Total Time Spent (In Minutes): >30 minutes
[2023-09-08] MEDS ORDERED: DOCUSATE SODIUM 100 MG CAP PO SCH (21:00)
[2023-09-08] MEDS ORDERED: ASPIRIN 81 MG ECTAB PO SCH (21:00)
[2023-09-09] MEDS ORDERED: VANCOMYCIN LEVEL ONE (03:30)
== END 2023-09-08 12:41 | disposition home or self-care (01) ==
LOC: ED 10:50 → INTOOBSV 13:57 → 3W 13:57 → SUATTDRO 13:57 → 3W 16:28